=== PATIENT | male | born 1980 | race Caucasian/White ===

== ENCOUNTER 2021-04-16 11:26 | Emergency (ER) | payer BC, SELFPAY ==
[2021-04-16 11:38] VITALS: BP 139/85; PULSE 116; RESP 18; TEMP 36.8; O2SAT 98
--- NOTE | 2021-04-16 11:49 | ED.URI ---
HPI - URI/Sore Throat General Chief Complaint: Upper Respiratory Infection Stated Complaint: Possible Sinus Infection Time Seen by Provider: 04/16/21 11:42 Source: patient, RN notes reviewed and old records reviewed Mode of arrival: ambulatory Limitations: no limitations History of Present Illness HPI Narrative: 40 year old male who presents to [facility] care with complaints of 3 day history of runny nose, sinus congestion, sinus pressure to facial area, sore throat, headache with pressure to right ear. Patient states no known fevers, chills or sweats, reports that he has deviated septum history with past history of sinus infections. Patient reports pressure to his facial region maxillary area with frontal headache also. Patient has longstanding history of tobacco abuse, no shortness of breath noted or stated with respirations even and unlabored SaO2 98% on room air MD elicited complaint: sore throat, rhinorrhea, nasal congestion and sinus pain Pertinent past history: other (tobacco abuse, devited septum) Onset (ago): day(s) (3) Consistency: progressively worsening Description of mucous: clear Able to tolerate fluids by mouth: Yes Exacerbating factors: exertion and changing head position Relieving factors: nothing Associated symptoms: headache, rhinorrhea, nasal congestion, sore throat, cough (rare) and ear pain (right ear pressure) Treatments prior to arrival: ibuprofen Related Data Allergies Allergy/AdvReac Type Severity Reaction Status Date / Time azithromycin Allergy Mild Unknown Verified 04/16/21 11:47 Review of Systems Review of Systems: Narrative: CONSTITUTIONAL: Denies fever, chills, or sweats. EYES: Denies visual changes, redness, or discharge. ENT: Positive rhinorrhea, congestion, sinus pressure facial region, sore throat, right otalgia. CARDIOVASCULAR: Denies chest pain, palpitations, or edema. RESPIRATORY: Rare cough denies dyspnea. GASTROINTESTINAL: Denies abdominal pain, nausea, vomiting, or diarrhea. GENITOURINARY: Denies dysuria or hematuria. SKIN: Denies rash or itching. MUSCULOSKELETAL: Denies back pain, joint pain, or myalgia. NEUROLOGIC: Positive frontal headache, no numbness, or weakness. PSYCHIATRIC: Denies anxiety or depression. All systems reviewed & are unremarkable except as noted in HPI and below PMFSH Past Medical History Medical History (Updated 04/17/21 @ 00:01 by Emiliano Daemtulio) Deviated nasal septum Surgical History Surgical History (Updated 04/16/21 @ 12:18 by Bekah Valiente NP) No history of previous surgery Family History Family History (Updated 04/19/21 @ 13:22 by Bekah Valiente NP) Grandparent Emphysema lung Heart disease Father Hemophilia Mother Cancer of stomach Social History Social History (Updated 04/16/21 @ 12:16 by Bekah Valiente NP) Smoking packs per day: 1 Smoking cigarettes per day: 20.0 Years smoked: 23 Smoking pack-years: 23.00 Smoking status: Current every day smoker Tobacco type: cigarettes Alcohol intake: current Alcohol use details: social Substance use: current Substance use type: marijuana Last use: rare Living arrangements: with family Gender identity (if verbalized by the patient): Male Comments At time of signature, agree with nursing past medical, surgical, social and family history. There is no relevant family history pertinent to the presenting complaint Exam Narrative: Exam Narrative: GENERAL: Well-appearing, well-nourished, and in no acute distress. HEAD: Normocephalic, atraumatic. EYES: PERRLA and EOMI. ENT: Nares red and swollen, clear rhinorrhea no epistaxis maxillary sinus pressure. Mucous membranes moist. TMs normal left with good light reflex right TM pink bulging with dull light reflex, throat light red with no exudates or lesions postnasal drainage present to back of throat NECK: Supple. No lymphadenopathy CHEST: Clear to auscultation. No respiratory distress. SaO2 98% on room air HEART
== END 2021-04-16 12:15 | disposition home or self-care (01) ==
PROVIDERS: Emergency Provider Registered Nurse
DX: J01.90 Acute sinusitis, unspecified (principal); H92.01 Otalgia, right ear; F17.210 Nicotine dependence, cigarettes, uncomplicated
CPT/HCPCS: 99213; G0463